=== PATIENT | female | born 1985 | race American Indian/Alaskan Native ===

== ENCOUNTER 2018-07-08 00:03 | Emergency (ER) | payer MEDICAID ==
[2018-07-08] MEDS ORDERED: ASPIRIN PO ONE (00:19)
[2018-07-08] MEDS ORDERED: MORPHINE IV ONE (00:23)
[2018-07-08] MEDS ORDERED: ZOFRAN IV ONE (00:23)
--- NOTE | 2018-07-08 00:27 | Emergency Department Report ---
ED Chest Pain HPI - General Chief Complaint: Chest Pain Stated Complaint: CHEST PAIN Time Seen by Provider: 07/08/18 00:20 Source: EMS Mode of arrival: Stretcher Limitations: No Limitations - History of Present Illness Initial Comments: Patient is 32 years old female with history of pulmonary embolism and DVT several times. Patient supposed to be on Lovenox but patient is not compliant with her medication. Patient presented today complaining of right lower chest pain for the last 3 days as needed been associated with shortness of breath. Patient stated that her symptoms are similar to when she had her PEs before. Patient denied any fever, nausea or vomiting. MD Complaint: chest pain -: days(s) Onset: during rest Pain Location: right chest Pain Radiation: back Severity: severe Severity scale (0 -10): 10 Quality: sharp Consistency: constant - Related Data Previous Rx's Medication Instructions Recorded Last Taken Type HYDROcodone/APAP 5-325 [[place] 1 - 2 each PO Q6HR PRN #12 tablet 03/25/16 Unknown Rx 5-325 mg TAB] Enoxaparin [Lovenox] 100 mg SQ Q12HR #30 syringe 05/10/16 Unknown Rx Allergies Allergy/AdvReac Type Severity Reaction Status Date / Time No Known Allergies Allergy Verified 05/09/16 15:42 Heart Score - HEART Score History: Slightly suspicious EKG: Normal Age: < 45 Risk factors: No known risk factors Troponin: < normal limit HEART Score: 0 - Critical Actions Critical Actions: 0-3 pts:0.9-1.7%risk of adverse cardiac event.Candidate for discharge ED Review of Systems ROS: Stated complaint: CHEST PAIN Other details as noted in HPI Comment: All other systems reviewed and negative Constitutional: denies: chills, fever Respiratory: shortness of breath, SOB at rest. denies: cough, orthopnea, SOB with exertion, stridor, wheezing Cardiovascular: chest pain, palpitations Gastrointestinal: denies: abdominal pain, nausea, vomiting Neurological: denies: headache, weakness, numbness, paresthesias, confusion, abnormal gait ED Past Medical Hx - Past Medical History Hx Hypertension: No Hx Heart Attack/AMI: No Hx Congestive Heart Failure: No Hx Diabetes: Yes (mother) Hx Deep Vein Thrombosis: Yes Hx Pulmonary Embolism: Yes Hx Renal Disease: No Hx Sickle Cell Disease: No Hx Seizures: No Hx Psychiatric Treatment: No Hx Asthma: No Hx COPD: No Hx Tuberculosis: No Hx HIV: No - Surgical History Hx Coronary Stent: No Hx Pacemaker: No Hx Internal Defibrillator: No Additional Surgical History: irvin filter placed - Social History Smoking Status: Current Every Day Smoker Substance Use Type: Alcohol - Medications Home Medications: Home Medications Medication Instructions Recorded Confirmed Last Taken Type HYDROcodone/APAP 5-325 [[place] 1 - 2 each PO Q6HR PRN #12 tablet 03/25/16 05/10/16 Unknown Rx 5-325 mg TAB] Enoxaparin [Lovenox] 100 mg SQ Q12HR #30 syringe 05/10/16 Unknown Rx ED Physical Exam - General Limitations: No Limitations General appearance: alert, anxious, in distress - Head Head exam: Present: atraumatic, normocephalic, normal inspection - Eye Eye exam: Present: normal appearance - ENT ENT exam: Present: normal exam, normal orophraynx, mucous membranes moist - Neck Neck exam: Present: normal inspection, full ROM. Absent: tenderness, meningismus, lymphadenopathy, thyromegaly - Respiratory Respiratory exam: Present: normal lung sounds bilaterally. Absent: respiratory distress, wheezes, rales, rhonchi, stridor, chest wall tenderness, accessory muscle use, decreased breath sounds, prolonged expiratory - Cardiovascular Cardiovascular Exam: Present: regular rate, tachycardia, normal heart sounds - GI/Abdominal GI/Abdominal exam: Present: soft, normal bowel sounds. Absent: distended, tenderness, guarding, rebound, rigid, organomegaly, mass, bruit, pulsatile mass, hernia - Extremities Exam Extremities exam: Present: normal inspection, full ROM, normal capillary refill. Absent: pedal edema, calf tenderness - Back Exam Back exam: Present: normal inspection, full ROM. Absent: tenderness, CVA tenderness (R), CVA tenderness (L), muscle spasm, paraspinal tenderness, vertebral tenderness - Neurological Exam Neurological exam: Present: alert, oriented X3, CN II-XII intact, normal gait, reflexes normal - Skin Skin exam: Present: warm, intact, normal color ED Course Vital Signs 07/08/18 07/08/18 07/08/18 00:12 00:13 00:16 Temperature 98.3 F Pulse Rate 103 H 104 H Respiratory 24 26 H Rate Blood Pressure 142/95 Blood Pressure 142/95 [Left] O2 Sat by Pulse 100 100 100 Oximetry 07/08/18 07/08/18 00:17 00:30 Temperature Pulse Rate 99 H Respiratory 18 16 Rate Blood Pressure 135/89 Blood Pressure [Left] O2 Sat by Pulse 98 100 Oximetry NOAM score - Noam Score Age > 65: (0) No Aspirin use within the Past 7 Days: (0) No 3 or more CAD Risk Factors: (0) No 2 or more Angina events in past 24 hrs: (0) No Known CAD with more than 50% Stenosis: (0) No Elevated Cardiac Markers: (0) No ST Deviation Greater than 0.5mm: (0) No NOAM Score: 0 ED Medical Decision Making - Lab Data Result diagrams: 07/08/18 00:24 07/08/18 00:24 - EKG Data -: EKG Interpreted by [place] EKG shows normal: sinus rhythm Rate: tachycardia - EKG Data Interpretation: no acute changes - Radiology Data Radiology results: report reviewed Referring Physician: RASHIDA QUEVEDO Patient Name: SERENITY JUAREZ Date of : 1985 Sex: Female Report Date: 2018-07-08 Report Status: Finalized Findings [facility] [address] [place] [address] Cat Scan Report Signed Patient: SERENITY JUAREZ MR#: [id number] : 1985 Acct:[id number] Age/Sex: 32 / F ADM Date: 07/08/18 Loc: ED Attending Dr: Ordering Physician: RASHIDA QUEVEDO Date of Service: 07/08/18 Procedure(s): CT abdomen pelvis wo con Accession Number(s): [id number] cc: RASHIDA QUEVEDO FINAL REPORT EXAM: CT ABDOMEN PELVIS WO CON HISTORY: ABDOMINAL PAIN TECHNIQUE: Routine axial imaging was obtained of the abdomen and pelvis without additional IV or oral contrast. Sagittal and coronal reconstructions were reviewed. FINDINGS: The lung bases are clear. Pleural fluid is not seen. The gallbladder has been removed. The liver and biliary tree appear normal. The pancreas, spleen and adrenal glands appear normal. The kidneys show no evidence of hydro nephrosis. There is a filter deployed in the IVC. The bowel loops are normal in caliber. There is a large amount retained fecal content. The appendix is normal. There is no evidence of free fluid or adenopathy. In the pelvis the uterus and bladder are unremarkable. The skeletal structures reveal bilateral arthritic changes of the SI joints as well as the right L5-S1 facet joint. IMPRESSION: Cholecystectomy. No acute process in the abdomen and pelvis. Large amount retained fecal content. 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 Transcribed By: RB Dictated By: DEIRDRE WATTS MD Electronically Authenticated By: DEIRDRE WATTS MD Signed Date/Time: 07/08/18 0345 Referring Physician: RASHIDA QUEVEDO Patient Name: SERENITY JUAREZ Date of : 1985 Sex: Female Report Date: 2018-07-08 Report Status: [place] [address] Cat Scan Report Signed Patient: SERENITY JUAREZ MR#: [id number] : 1985 Acct:[id number] Age/Sex: 32 / F ADM Date: 07/08/18 Loc: ED Attending Dr: Ordering Physician: RASHIDA QUEVEDO Date of Service: 07/08/18 Procedure(s): CT angio chest Accession Number(s): [id number] cc: RASHIDA QUEVEDO FINAL REPORT EXAM: CT ANGIO CHEST HISTORY: CHEST PAIN with h/o PE TECHNIQUE: A CT angiogram was performed following the intravenous injection of 100 cc of Omnipaque 300. Rotational, sagittal, and coronal MIP reconstructions were reviewed. Comparison is made to the study of 05/09/2016. FINDINGS: There is no evidence of pulmonary embolus, vascular congestion, or aortic dissection. The thoracic aorta is normal in configuration. The heart size appears normal. Pericardial fluid is not seen. There is no evidence of adenopathy. The lungs are clear. Pleural fluid is not seen. In the upper abdomen the adrenal glands appear normal. The skeletal structures are well- maintained. At the thoracic inlet there is stable small calcifications in the left thyroid lobe. IMPRESSION: No evidence of pulmonary embolus, aortic dissection, or vascular congestion. No acute process in the chest Transcribed By: RB Dictated By: DEIRDRE WATTS MD Electronically Authenticated By: DEIRDRE WATTS MD Signed Date/Time: 07/08/18245 DD/ 7 TD/TT: 07/08/18247 DD/ 6 TD/TT: 07/08/18346 - Medical Decision Making Patient is 32 years old female with history of pulmonary embolism and DVT several times. Patient supposed to be on Lovenox but patient is not compliant with her medication. Patient presented today complaining of right lower chest pain for the last 3 days as needed been associated with shortness of breath. Patient stated that her symptoms are similar to when she had her PEs before. Patient denied any fever, nausea or vomiting. Patient is stated that she is feeling much better. CT chest is negative. CT abdomen and pelvis show a fecal retention. I advised the patient to follow up with her primary care physician in the next 2-3 days. I wrote for Colace and lactulose. Critical care attestation.: If time is entered above; I have spent that time in minutes in the direct care of this critically ill patient, excluding procedure time. ED Disposition Clinical Impression: Atypical chest pain, Abdominal pain, Constipation Disposition: -01 TO HOME OR SELFCARE Is pt being admited?: No Condition: Stable Instructions: Chest Pain (ED), Constipation (ED), High Fiber Diet (ED) Referrals: IVANA LUCERO MD [Primary Care Provider] - 3-5 Days
[2018-07-08 00:37] LABS: Basophils # (Auto) 0.1 K/mm3 (0.0-0.1); Basophils % (Auto) 0.6 % (0.0-1.8); Eosinophils # (Auto) 0.5 K/mm3 (0.0-0.4); Eosinophils % (Auto) 4.1 % (0.0-4.3); Hematocrit 39.1 % (30.3-42.9); Hemoglobin 13.7 gm/dl (10.1-14.3); Lymphocytes # (Auto) 2.6 K/mm3 (1.2-5.4); Lymphocytes % (Auto) 23.5 % (13.4-35.0); Mean Corpuscular HGB Conc 35 % (30-34); Mean Corpuscular Volume 92 fl (79-97); Monocytes # (Auto) 0.7 K/mm3 (0.0-0.8); Monocytes % (Auto) 6.6 % (0.0-7.3); Platelet Count 243 K/mm3 (140-440); Red Blood Count 4.23 M/mm3 (3.65-5.03); Red Cell Distribution Width 12.7 % (13.2-15.2)
[2018-07-08 00:47] LABS: INR 0.82 (0.87-1.13)
[2018-07-08 00:48] LABS: Partial Thromboplastin Time 31.6 Sec. (24.2-36.6)
[2018-07-08 00:56] LABS: BUN/Creatinine Ratio 12; Blood Urea Nitrogen 11 mg/dL (7-17); Calcium 8.9 mg/dL (8.4-10.2); Hemolysis Index 13
--- NOTE | 2018-07-08 02:46 | Cat Scan Report ---
FINAL REPORT EXAM: CT ANGIO CHEST HISTORY: CHEST PAIN with h/o PE TECHNIQUE: A CT angiogram was performed following the intravenous injection of 100 cc of Omnipaque 3 00. Rotational, sagittal, and coronal MIP reconstructions were reviewed. Comparison is made to the [facility] of 05/09/2016. FINDINGS: There is no evidence of pulmonary embolus, vascular congestion, or aortic dissection. The thoracic ao rta is normal in configuration. The heart size appears normal. Pericardial fluid is not seen. There i s no evidence of adenopathy. The lungs are clear. Pleural fluid is not seen. In the upper abdomen the adrenal glands appear normal. The skeletal structures are well-maintained. At the thoracic inlet the re is stable small calcifications in the left thyroid lobe. IMPRESSION: No evidence of pulmonary embolus, aortic dissection, or vascular congestion. No acute process in the chest
[2018-07-08] MEDS ORDERED: TORADOL ONE (03:00)
[2018-07-08] MEDS ORDERED: TORADOL IV ONE (03:02)
--- NOTE | 2018-07-08 03:45 | Cat Scan Report ---
FINAL REPORT EXAM: CT ABDOMEN PELVIS WO CON HISTORY: ABDOMINAL PAIN TECHNIQUE: Routine axial imaging was obtained of the abdomen and pelvis without additional IV or ora l contrast. Sagittal and coronal reconstructions were reviewed. FINDINGS: The lung bases are clear. Pleural fluid is not seen. The gallbladder has been removed. The liver and biliary tree appear normal. The pancreas, spleen and adrenal glands appear normal. The kidneys show no evidence of hydronephrosis. There is a filter deplo yed in the IVC. The bowel loops are normal in caliber. There is a large amount retained fecal content . The appendix is normal. There is no evidence of free fluid or adenopathy. In the pelvis the uterus and bladder are unremarkable. The skeletal structures reveal bilateral arthritic changes of the SI home ints as well as the right L5-S1 facet joint. IMPRESSION: Cholecystectomy. No acute process in the abdomen and pelvis. Large amount retained fecal content. 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
[2018-07-08 05:11] VITALS: BP 116/76
== END 2018-07-08 05:11 | disposition home or self-care (01) ==
LOC: ED 00:03
DX: R07.89 Other chest pain (principal); K59.00 Constipation, unspecified; E11.9 Type 2 diabetes mellitus without complications; F17.200 Nicotine dependence, unspecified, uncomplicated; Z90.49 Acquired absence of other specified parts of digestive tract; Z86.718 Personal history of other venous thrombosis and embolism; Z86.711 Personal history of pulmonary embolism
CPT/HCPCS: 36415; 71275; 74176; 80048; 84703; 85025; 85610; 85730; 93005; 93010; 96374; 96375; 99285; J1885; J2270; J2405; Q9967

== ENCOUNTER 2021-02-19 03:45 | Outpatient (CLI) | payer MEDICAID ==
[2021-02-19] MEDS ORDERED: LACTATED RINGERS 1,000 ML IV ONE (04:31)
[2021-02-19 04:56] LABS: Amphetamine Screen,Urine Negative; Benzodiazepines Screen,Urine Negative; Cocaine Screen,Urine Negative; Methadone Screen,Urine Negative; Opiate Screen,Urine Negative
[2021-02-19 05:21] LABS: Bilirubin,Urine NEG (Negative); Blood,Urine NEG (Negative); Color,Urine Straw (Yellow); Protein,Urine <15 mg/dL mg/dL (Negative); RBC,Urine < 1.0 /HPF (0.0-6.0); Urobilinogen,Urine < 2.0 mg/dL (<2.0)
[2021-02-19] MEDS ORDERED: MAGNESIUM HYDROXIDE (MOM) ORAL LIQD UDC PO ONE (06:00)
[2021-02-19] MEDS ORDERED: MORPHINE 2 MG/1 ML INJ IM ONE (06:00)
[2021-02-19 06:06] LABS: Cannabinoid Screen,Urine Positive
[2021-02-19 09:24] VITALS: BP 121/67
[2021-02-19] MEDS ORDERED: ONDANSETRON 4 MG/2 ML INJ IV NR (09:30)
== END 2021-02-19 10:05 | disposition home or self-care (01) ==
LOC: TRG 03:45 → APU 03:48 → TRG 10:05
PROVIDERS: ATTEND Obstetrics & Gynecology
DX: O62.9 Abnormality of forces of labor, unspecified (principal); O26.892 Other specified pregnancy related conditions, second trimester; R10.9 Unspecified abdominal pain; O09.522 Supervision of elderly multigravida, second trimester; O99.352 Diseases of the nervous system complicating pregnancy, second trimester; G43.909 Migraine, unspecified, not intractable, without status migrainosus; O99.512 Diseases of the respiratory system complicating pregnancy, second trimester; F17.200 Nicotine dependence, unspecified, uncomplicated; Z90.49 Acquired absence of other specified parts of digestive tract; Z3A.22 22 weeks gestation of pregnancy; Z79.899 Other long term (current) drug therapy
CPT/HCPCS: 59025; 80307; 81001; 96361; 96365; 96367; 96372; J0690; J2270; J2405; J7120; 96360

== ENCOUNTER 2022-03-13 11:24 | Emergency (ER) | payer MEDICAID ==
--- NOTE | 2022-03-13 12:17 | Event Note ---
ED Screening Note Date of service: 03/13/22 Time: 12:15 ED Screening Note: 36 Y Female with long Hx of DVt and PE reports to ER with right arm pain and discomfort with inhalation / has been off her blood thinner for 3 months due to financial concerns after having baby This initial assessment/diagnostic orders/clinical plan/treatment(s) is/are subject to change based on patients health status, clinical progression and re- assessment by fellow clinical providers in the ED. Further treatment and workup at subsequent clinical providers discretion. Patient/guardian urged not to elope from the ED as their condition may be serious if not clinically assessed and managed. Initial orders include: Active Orders 24 hr Category Date Time Status CMP [Comprehensive Metabolic Panel] Stat Lab 03/13/22 12:14 Ordered Complete Blood Count Auto Diff Stat Lab 03/13/22 12:14 Ordered D-Dimer Stat Lab 03/13/22 12:14 Ordered Partial Thromboplastin Time Stat Lab 03/13/22 12:11 Ordered Prothrombin Time INR Stat Lab 03/13/22 12:11 Ordered VL venous duplex UE RT Stat Vasc Lab 03/13/22 12:11 Ordered
[2022-03-13 12:50] LABS: Basophils # (Auto) 0.1 K/mm3 (0.0-0.1); Basophils % (Auto) 0.7 % (0.0-1.8); Eosinophils # (Auto) 0.2 K/mm3 (0.0-0.4); Eosinophils % (Auto) 3.1 % (0.0-4.3); Hematocrit 41.9 % (30.3-42.9); Hemoglobin 14.1 gm/dl (10.1-14.3); Lymphocytes # (Auto) 2.7 K/mm3 (1.2-5.4); Lymphocytes % (Auto) 33.7 % (13.4-35.0); Mean Corpuscular HGB Conc 34 % (30-34); Mean Corpuscular Volume 92 fl (79-97); Monocytes # (Auto) 0.7 K/mm3 (0.0-0.8); Monocytes % (Auto) 8.5 % (0.0-7.3); Platelet Count 296 K/mm3 (140-440); Red Blood Count 4.54 M/mm3 (3.65-5.03); Red Cell Distribution Width 12.9 % (13.2-15.2)
[2022-03-13 13:29] LABS: Alanine Aminotransferase 21 units/L (7-56); Albumin 4.4 g/dL (3.9-5); BUN/Creatinine Ratio 18; Blood Urea Nitrogen 14 mg/dL (7-17); Calcium 9.4 mg/dL (8.4-10.2); Hemolysis Index 8
--- NOTE | 2022-03-13 14:39 | Vascular Lab Report ---
DUPLEX DOPPLER UPPER EXTREMITY VENOUS, RIGHT INDICATION / CLINICAL INFORMATION: Hx of DVT and arm pain. TECHNIQUE: Duplex doppler imaging was performed through the veins of the right upper extremity using venous compression and other maneuvers. COMPARISON: None available. FINDINGS: RIGHT INTERNAL JUGULAR VEIN: Negative. RIGHT SUBCLAVIAN VEIN: Negative. RIGHT AXILLARY VEIN: Negative. RIGHT BRACHIAL VEIN: Acute thrombus. RIGHT FOREARM VEINS: Negative. RIGHT BASILIC VEIN (SUPERFICIAL): Acute thrombus. ADDITIONAL FINDINGS: None. IMPRESSION: 1. Acute DVT right brachial vein. There is also acute superficial venous thrombosis within the right basilic vein. The retoucher reported these findings to nurse practitioner Darinel at the conclusion of the exam. Signer Name: Thang Kay MD Signed: 03/13/2022 2:35 PM Workstation Name: [id number]
[2022-03-13 15:26] LABS: INR 0.87 (0.87-1.13)
[2022-03-13 15:27] LABS: Partial Thromboplastin Time 33.3 Sec. (24.2-36.6)
--- NOTE | 2022-03-13 17:34 | Cat Scan Report ---
CTA CHEST WITH CONTRAST INDICATION / CLINICAL INFORMATION: elevated d dimer with PE hx 100ml of [id number]. TECHNIQUE: Axial CT images were obtained through the chest after injection of IV contrast. 3 plane NM P and/or 3D reconstructions were produced. All CT scans at this location are performed using CT dose reduction for ALARA by means of automated exposure control. COMPARISON: CTA 07/08/2018. FINDINGS: PULMONARY EMBOLUS: None. THORACIC AORTA: No significant abnormality. HEART: No significant abnormality. CORONARY ARTERY CALCIFICATION: Absent -- None. MEDIASTINUM / ZAC: No significant abnormality. PLEURA: No pleural effusion. No pneumothorax. LUNGS: No acute air space or interstitial disease. ADDITIONAL FINDINGS: None. UPPER ABDOMEN: No acute findings. SKELETAL STRUCTURES: No significant osseous abnormality. IMPRESSION: 1. No CT evidence for pulmonary embolism. 2. No acute findings. Signer Name: Thang Kay MD Signed: 03/13/2022 5:30 PM Workstation Name: [id number]
[2022-03-13] MEDS ORDERED: HYDROcodone/ACETAMINOPHEN 10-325MG TAB PO ONE (19:54)
[2022-03-13] MEDS ORDERED: MORPHINE 2 MG/1 ML INJ IV ONE (20:55)
[2022-03-13] MEDS ORDERED: ONDANSETRON 4 MG/2 ML INJ IV ONE (20:55)
[2022-03-13 21:09] VITALS: BP 155/89
--- NOTE | 2022-03-13 23:03 | Emergency Department Report ---
ED General Adult HPI - General Chief complaint: Chest Pain Stated complaint: RIGHT ARM NUMBNESS Time Seen by Provider: 03/13/22 20:59 Source: patient Mode of arrival: Ambulatory Limitations: No Limitations - History of Present Illness Initial comments: The patient presents to the emergency department the chief complaint of right arm pain. Patient states she has a history of DVTs and is concerned that she may have a DVT in her right arm. Patient states that she had a baby within the last year and was on Lovenox during her but since the of her baby she has not been on anticoagulation. Patient states she has had anticoagulation work-up done previously to no avail. Patient denies chest pain, shortness breath, or headache. -: unknown Location: upper extremity Radiation: non-radiation Severity scale (0 -10): 9 Quality: aching Consistency: constant Improves with: none Worsens with: none Associated Symptoms: denies other symptoms Treatments Prior to Arrival: none - Related Data Previous Rx's Medication Instructions Recorded Last Taken Type HYDROcodone/APAP 5-325 [[place] 1 - 2 each PO Q6HR PRN #12 tablet 03/25/16 Unknown Rx 5-325 mg TAB] Enoxaparin 100 mg SQ Q12HR #30 syringe 05/10/16 Unknown Rx Docusate Sodium [Colace] 100 mg PO BID PRN #60 capsule 07/08/18 Unknown Rx Lactulose 10 gm PO DAILY PRN #150 ml 07/08/18 Unknown Rx Sodium Phosphate,Holt-Dibasic 118 ml RC ONCE #1 enema 07/08/18 Unknown Rx [Fleet Enema] Allergies Allergy/AdvReac Type Severity Reaction Status Date / Time No Known Allergies Allergy Verified 05/09/16 15:42 ED Review of Systems ROS: Stated complaint: RIGHT ARM NUMBNESS Other details as noted in HPI Comment: All other systems reviewed and negative Constitutional: denies: chills, fever Eyes: denies: eye pain, eye discharge, vision change ENT: denies: ear pain, throat pain Respiratory: denies: cough, shortness of breath, wheezing Cardiovascular: denies: chest pain, palpitations Endocrine: no symptoms reported Gastrointestinal: denies: abdominal pain, nausea, diarrhea Genitourinary: denies: urgency, dysuria, discharge Musculoskeletal: other (Right arm pain). denies: back pain, joint swelling, arthralgia Skin: denies: rash, lesions Neurological: denies: headache, weakness, paresthesias Psychiatric: denies: anxiety, depression Hematological/Lymphatic: denies: easy bleeding, easy bruising ED Past Medical Hx - Past Medical History Hx Hypertension: No Hx Heart Attack/AMI: No Hx Congestive Heart Failure: No Hx Diabetes: Yes (mother) Hx Deep Vein Thrombosis: Yes (numerous) Hx Pulmonary Embolism: Yes Hx Renal Disease: No Hx Sickle Cell Disease: No Hx Seizures: No Hx Psychiatric Treatment: No Hx Asthma: No Hx COPD: No Hx Tuberculosis: No Hx HIV: No - Surgical History Hx Coronary Stent: No Hx Pacemaker: No Hx Internal Defibrillator: No Additional Surgical History: irvin filter placed - Social History Smoking Status: Current Every Day Smoker - Medications Home Medications: Home Medications Medication Instructions Recorded Confirmed Last Taken Type HYDROcodone/APAP 5-325 [[place] 1 - 2 each PO Q6HR PRN #12 tablet 03/25/16 05/10/16 Unknown Rx 5-325 mg TAB] Enoxaparin 100 mg SQ Q12HR #30 syringe 05/10/16 Unknown Rx Docusate Sodium [Colace] 100 mg PO BID PRN #60 capsule 07/08/18 Unknown Rx Lactulose 10 gm PO DAILY PRN #150 ml 07/08/18 Unknown Rx Sodium Phosphate,Holt-Dibasic 118 ml RC ONCE #1 enema 07/08/18 Unknown Rx [Fleet Enema] ED Physical Exam - General Limitations: No Limitations General appearance: alert, in no apparent distress - Head Head exam: Present: atraumatic, normocephalic - Eye Eye exam: Present: normal appearance, PERRL, EOMI - ENT ENT exam: Present: mucous membranes moist - Neck Neck exam: Present: normal inspection - Respiratory Respiratory exam: Present: normal lung sounds bilaterally. Absent: respiratory distress - Cardiovascular Cardiovascular Exam: Present: regular rate, normal rhythm. Absent: systolic murmur, diastolic murmur, rubs, gallop - GI/Abdominal GI/Abdominal exam: Present: soft, normal bowel sounds. Absent: distended, tenderness - Extremities Exam Extremities exam: Present: other (Warm swollen and tender to palpation) - Back Exam Back exam: Present: normal inspection - Neurological Exam Neurological exam: Present: alert, oriented X3 - Psychiatric Psychiatric exam: Present: normal affect, normal mood - Skin Skin exam: Present: warm, dry, intact, normal color. Absent: rash ED Course Vital Signs 03/13/22 03/13/22 03/13/22 12: 20:24 21:08 Temperature 98 F Pulse Rate 77 86 Respiratory 16 19 19 Rate Blood Pressure 118/98 155/89 [Right] O2 Sat by Pulse 100 100 100 Oximetry ED Medical Decision Making - Lab Data Result diagrams: 03/13/22 12:25 03/13/22 12:25 Lab Results 03/13/22 03/13/22 03/13/22 Range/Units 12:25 12:25 12:25 WBC 7.9 (4.5-11.0) K/mm3 RBC 4.54 (3.65-5.03) M/mm3 Hgb 14.1 (10.1-14.3) gm/dl Hct 41.9 (30.3-42.9) % MCV 92 (79-97) fl MCH 31 (28-32) pg MCHC 34 (30-34) % RDW 12.9 L (13.2-15.2) % Plt Count 296 (140-440) K/mm3 Lymph % (Auto) 33.7 (13.4-35.0) % Holt % (Auto) 8.5 H (0.0-7.3) % Eos % (Auto) 3.1 (0.0-4.3) % Baso % (Auto) 0.7 (0.0-1.8) % Lymph # (Auto) 2.7 (1.2-5.4) K/mm3 Holt # (Auto) 0.7 (0.0-0.8) K/mm3 Eos # (Auto) 0.2 (0.0-0.4) K/mm3 Baso # (Auto) 0.1 (0.0-0.1) K/mm3 Seg Neutrophils % 54.0 (40.0-70.0) % Seg Neutrophils # 4.3 (1.8-7.7) K/mm3 PT 12.8 (12.2-14.9) Sec. INR 0.87 (0.87-1.13) APTT 33.3 (24.2-36.6) Sec. D-Dimer 719.78 H (0-234) ng/mlDDU Sodium 141 (137-145) mmol/L Potassium 4.6 (3.6-5.0) mmol/L Chloride 103.5 (98-107) mmol/L Carbon Dioxide 26 (22-30) mmol/L Anion Gap 16 mmol/L BUN 14 (7-17) mg/dL Creatinine 0.8 (0.6-1.2) mg/dL Estimated GFR > 60 ml/min BUN/Creatinine Ratio 18 % Glucose 77 (65-100) mg/dL Calcium 9.4 (8.4-10.2) mg/dL Total Bilirubin 0.40 (0.1-1.2) mg/dL AST 19 (5-40) units/L ALT 21 (7-56) units/L Alkaline Phosphatase 98 (35-129) units/L Total Protein 7.1 (6.3-8.2) g/dL Albumin 4.4 (3.9-5) g/dL Albumin/Globulin Ratio 1.6 % - Radiology Data Radiology results: report reviewed - Medical Decision Making Patient was given first dose of Xarelto in the emergency department Critical care attestation.: If time is entered above; I have spent that time in minutes in the direct care of this critically ill patient, excluding procedure time. ED Disposition Clinical Impression: DVT (deep venous thrombosis) Disposition: 01 HOME / SELF CARE / HOMELESS Is pt being admited?: No Does the pt Need Aspirin: No Condition: Stable Instructions: Rivaroxaban oral tablets, Deep Vein Thrombosis Additional Instructions: Return if worse Referrals: PRIMARY CAREMD [Primary Care Provider] - 3-5 Days TERESA ERNANDEZ MD [Staff Physician] - 3-5 Days Time of Disposition: 23:00
[2022-03-14] MEDS ORDERED: RIVAROXABAN 15 MG TAB PO SCH (08:00)
[2022-03-14] MEDS ORDERED: RIVAROXABAN 15 MG TAB PO ONE (21:28)
== END 2022-03-13 23:25 | disposition home or self-care (01) ==
LOC: ED 11:24
DX: M79.601 Pain in right arm (principal); Z86.718 Personal history of other venous thrombosis and embolism; E11.9 Type 2 diabetes mellitus without complications; I26.99 Other pulmonary embolism without acute cor pulmonale; F17.200 Nicotine dependence, unspecified, uncomplicated
CPT/HCPCS: 36415; 71275; 80053; 85025; 85379; 85610; 85730; 93971; 96374; 96375; 99284; J2270; J2405; Q9967